=== PATIENT | male | born 1975 | race Caucasian/White ===

== ENCOUNTER → 2017-06-27 10:37 | Outpatient (CLI) | payer MEDICAID | END | disposition home or self-care (01) | LOC: D.MRI 08:00 | DX: M54.2 Cervicalgia (principal) ==

== ENCOUNTER → 2018-06-10 16:54 | Outpatient (CLI) | payer MEDICAID | END | disposition home or self-care (01) | LOC: D.MRI 16:54 | DX: M50.30 Other cervical disc degeneration, unspecified cervical region (principal) ==